=== PATIENT | male | born 1995 | race Caucasian/White ===

== ENCOUNTER 2018-06-09 14:56 | Emergency (ER) | payer OTHER ==
[~2018-06-09] VITALS: Ht 182.9 cm; Wt 83.9 kg
[2018-06-09 15:15] VITALS: BP 174/86
--- NOTE | 2018-06-09 15:32 | PHYS DOC ---
Past History Past Medical History: No Pertinent History Past Surgical History: Other Alcohol Use: Rarely Drug Use: None Adult General Chief Complaint Chief Complaint: KNEE INJURY HPI HPI 22-year-old male presents with left knee pain. The patient stepped off of a curb 2 days ago and had his knee give out. He was unable to weight on it for a couple hours but has been able to bear weight since that time. Knee is still very swollen. Patient is worried because he had ACL repair in August of this year. He is concerned he has reinjured the knee. He denies fever or chills. He has no other injuries. Review of Systems Review of Systems Constitutional: Denies fever or chills [] Eyes: Denies change in visual acuity, redness, or eye pain [] HENT: Denies nasal congestion or sore throat [] Respiratory: Denies cough or shortness of breath [] Cardiovascular: No additional information not addressed in HPI [] GI: Denies abdominal pain, nausea, vomiting, bloody stools or diarrhea [] : Denies dysuria or hematuria [] Musculoskeletal: Left knee pain[] Integument: Denies rash or skin lesions [] Neurologic: Denies headache, focal weakness or sensory changes [] Endocrine: Denies polyuria or polydipsia [] All other systems were reviewed and found to be within normal limits, except as documented in this note. Allergies Allergies Allergies Coded Allergies Type Severity Reaction Last Updated Verified No Known Drug Allergies 06/09/18 No Physical Exam Physical Exam Constitutional: Well developed, well nourished, no acute distress, non-toxic appearance. [] HENT: Normocephalic, atraumatic, bilateral external ears normal, oropharynx moist, no oral exudates, nose normal. [] Eyes: PERRLA, EOMI, conjunctiva normal, no discharge. [] Neck: Normal range of motion, no tenderness, supple, no stridor. [] Cardiovascular:Heart rate regular rhythm, no murmur [] Lungs & Thorax: Bilateral breath sounds clear to auscultation [] Abdomen: Bowel sounds normal, soft, no tenderness, no masses, no pulsatile masses. [] Skin: Warm, dry, no erythema, no rash. [] Back: No tenderness, no CVA tenderness. [] Extremities: Left knee with medial pain with valgus and varus stress. ACL more lax than the right, but there is good end feel. Suprapatellar swelling.[] Neurologic: Alert and oriented X 3, normal motor function, normal sensory function, no focal deficits noted. [] Psychologic: Affect normal, judgement normal, mood normal. [] Current Patient Data Vital Signs Vital Signs Date Time Temp Pulse Resp B/P (MAP) Pulse Ox O2 Delivery O2 Flow Rate FiO2 06/09/18 15:15 76 16 96 Room Air EKG EKG [] Radiology/Procedures Radiology/Procedures [] Impressions: EXAM: AP, oblique, tangential patellar and lateral views of the left knee DATE: 06/09/2018 3:40 PM INDICATION: PAIN IN LEFT KNEE. FALL TODAY. PRIOR SURGERY TO KNEE YEARS AGO COMPARISON: No Prior FINDINGS: Changes of ACL reconstruction are seen with patellar bone tendon bone allograft. Moderate left knee joint effusion. No evidence of acute fracture or dislocation. Neutral patellar tracking. IMPRESSION: 1. No evidence of acute fracture or dislocation. 2. Moderate left knee joint effusion Electronically signed by: Shekhar Duarte MD (06/09/2018 3:55 PM) [id number] DICTATED AND SIGNED BY: SHEKHAR DUARTE MD DATE: 06/09/18 1555 CC: LUCERO CHAVEZ DO; PCP,ALESSANDRA Course & Med Decision Making Course & Med Decision Making Pertinent Labs and Imaging studies reviewed. (See chart for details) The patient's x-rays negative for fracture. He does have moderate effusion. I recommended compression, ice, elevation, ibuprofen. I will discharge him with a short course of [place] 5/325. []I reviewed the chem was prescription drug database and he has not had any narcotics as since his reported time of his postsurgical recovery in September of this year. Dragon Disclaimer Dragon Disclaimer This electronic medical record was generated, in whole or in part, using a voice recognition dictation system. Departure Departure: Referrals: PCPALESSANDRA (PCP) LUCERO CHAVEZ DO Jun 09, 2018 15:32
--- NOTE | 2018-06-09 15:59 | RAD ---
EXAM: AP, oblique, tangential patellar and lateral views of the left knee DATE: 06/09/2018 3:40 PM INDICATION: PAIN IN LEFT KNEE. FALL TODAY. PRIOR SURGERY TO KNEE YEARS AGO COMPARISON: No Prior FINDINGS: Changes of ACL reconstruction are seen with patellar bone tendon bone allograft. Moderate left knee joint effusion. No evidence of acute fracture or dislocation. Neutral patellar tracking. IMPRESSION: 1. No evidence of acute fracture or dislocation. 2. Moderate left knee joint effusion Electronically signed by: Shekhar Duarte MD (06/09/2018 3:55 PM) [id number]
[2018-06-09] MEDS ORDERED: HYDR-3165 PO (16:18)
== END 2018-06-09 16:23 | disposition home or self-care (01) ==
LOC: ER 14:56
DX: M25.462 Effusion, left knee (principal); W10.1XXA Fall (on)(from) sidewalk curb, initial encounter; Y93.89 Activity, other specified; Y92.89 Other specified places as the place of occurrence of the external cause; Y99.8 Other external cause status
CPT/HCPCS: 73564; 99283

== ENCOUNTER 2020-11-12 14:09 | Emergency (ER) | payer OTHER ==
[~2020-11-12] VITALS: Ht 182.9 cm; Wt 99.8 kg
[~2020-11-12 14:09] MED LIST: HYDR-3165 PO
[2020-11-12 14:10] VITALS: BP 165/103
[2020-11-12 15:01] LABS: BASO % 1 % (0-3); EOS # 0.2 x10^3/uL (0.0-0.7); EOS % 2 % (0-3); HEMATOCRIT 44.5 % (39.0-53.0); HEMOGLOBIN 15.1 g/dL (13.0-17.5); LYMPH # 2.9 x10^3/uL (1.0-4.8); LYMPH % 37 % (24-48); MEAN CORPUSCULAR HEMOGLOBIN 33 pg (25-35); MEAN CORPUSCULAR HGB CONC 34 g/dL (31-37); MEAN CORPUSCULAR VOLUME 97 fL (79-100); MONO # 0.7 x10^3/uL (0.0-1.1); MONO % 9 % (0-9); NEUT % 51 % (31-73); PLATELET COUNT 159 x10^3/uL (140-400); RED BLOOD COUNT 4.61 x10^6/uL (4.30-5.70); WHITE BLOOD COUNT 7.8 x10^3/uL (4.0-11.0)
[2020-11-12 15:03] LABS: CALCIUM 9.2 mg/dL (8.5-10.1); GFR 90.3; POTASSIUM 3.6 mmol/L (3.5-5.1)
[2020-11-12 15:08] LABS: ALBUMIN 4.2 g/dL (3.4-5.0); ALBUMIN/GLOBULIN RATIO 1.1 (1.0-1.7); TOTAL BILIRUBIN 0.9 mg/dL (0.2-1.0); TOTAL PROTEIN 7.9 g/dL (6.4-8.2)
[2020-11-12 15:09] LABS: BARBITURATES NEG (NEG); BENZODIAZEPINES POS (NEG); CANNABINOIDS POS (NEG); COCAINE NEG (NEG); METHADONE NEG (NEG); OPIATES NEG (NEG); PHENCYCLIDINE NEG (NEG)
[2020-11-12 15:14] LABS: BACTERIA,URINE 0 /HPF (0-FEW); BILIRUBIN,URINE NEG (NEG); CLARITY,URINE CLEAR; COLOR,URINE AMBER; GLUCOSE,URINE NEG (NEG); NITRITE,URINE NEG (NEG); UROBILINOGEN,URINE 0.2 mg/dL (0.2 mg/dL)
[2020-11-12] MEDS ORDERED: DIPH,PERTUSS(ACELL),TET VAC/PF 0.5 ML SYRINGE. VAX IM ONE (15:15)
[2020-11-12] MEDS ORDERED: IOHEXOL 300 MG/ML 75 ML VIAL. IV ONE (15:15)
[2020-11-12 15:17] LABS: AMPHETAMINE/METHAMPHETAMINE NEG (NEG)
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
--- NOTE | 2020-11-12 15:56 | RAD ---
CT ABDOMEN+PELVIS W dated 11/12/2020 3:18 PM Indication:Reason: L3 back pain / Spl. Instructions: / History: Comparison: No comparison is available. Technique: CT images were performed using injection of 75 mL Omnipaque 300. No oral contrast was give n. One or more of the following individualized dose reduction techniques were utilized for this examinat ion: 1. Automated exposure control 2. Adjustment of the mA and/or kV according to patient size 3. Use of iterative reconstruction technique Findings: The lung bases are clear. The liver and spleen are homogeneous in density and normal in configuration . Both kidneys enhance with contrast. No mass or obstruction is seen. The adrenal glands are not enla rged. The pancreas appears normal. No retroperitoneal or mesenteric adenopathy is seen. There is no a pparent abdominal mass or inflammatory process. A normal appendix is seen arising from the cecum. Images through the pelvis show no abnormality of the distal ureters or bladder. No pelvic or inguinal adenopathy is seen. There is no apparent pelvic mass or inflammatory process. Bone windows show some apparent mild compression of L2. IMPRESSION: Mild L2 compression, presumably recent. No other acute findings in the abdomen or pelvis. Electronically signed by: Kan Paz Jr., MD (11/12/2020 3:54 PM) [id number]
[2020-11-12] MEDS ORDERED: HYDROmorphone PF 1 MG/ML DISP.SYRIN IVP ONE (16:15)
[2020-11-12] MEDS ORDERED: HYDR-2155 PO (17:36)
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
== END 2020-11-12 17:50 | disposition home health service (06) ==
LOC: ER 14:09
DX: S32.029A Unspecified fracture of second lumbar vertebra, initial encounter for closed fracture (principal); F41.9 Anxiety disorder, unspecified; Z23 Encounter for immunization; V87.8XXA Person injured in other specified noncollision transport accidents involving motor vehicle (traffic), initial encounter; Y93.89 Activity, other specified; Y92.488 Other paved roadways as the place of occurrence of the external cause; Y99.8 Other external cause status
CPT/HCPCS: 36415; 70450; 71045; 72125; 74177; 80053; 80307; 81001; 83690; 85025; 90471; 90715; 96374; 99285; G0480; J1170; Q9967

== ENCOUNTER 2021-02-10 21:37 | Emergency (ER) | payer BC, OTHER ==
[~2021-02-10] VITALS: Ht 182.9 cm; Wt 95.4 kg
[~2021-02-10 21:37] MED LIST changes: +HYDR-2155 PO
[2021-02-10 21:45] VITALS: BP 146/98
[2021-02-10] MEDS ORDERED: IV NORMAL SALINE 1,000ML 1,000 ML IV ONE (22:30)
--- NOTE | 2021-02-10 22:30 | RAD ---
Exam: Chest one view INDICATION: Shortness of breath TECHNIQUE: Frontal view of the chest Comparisons: 11/12/2020 FINDINGS: The cardiomediastinal silhouette and pulmonary vessels are within normal limits. The lung and pleural spaces are clear. IMPRESSION: No acute cardiopulmonary process. Electronically signed by: Renee Barrett MD (02/10/2021 10:28 PM) ALDA
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
[2021-02-10 22:59] LABS: BASO % 1 % (0-3); EOS # 0.2 x10^3/uL (0.0-0.7); EOS % 2 % (0-3); HEMATOCRIT 43.4 % (39.0-53.0); HEMOGLOBIN 14.9 g/dL (13.0-17.5); LYMPH # 2.7 x10^3/uL (1.0-4.8); LYMPH % 36 % (24-48); MEAN CORPUSCULAR HEMOGLOBIN 32 pg (25-35); MEAN CORPUSCULAR HGB CONC 34 g/dL (31-37); MEAN CORPUSCULAR VOLUME 93 fL (79-100); MONO # 0.7 x10^3/uL (0.0-1.1); MONO % 9 % (0-9); NEUT % 52 % (31-73); PLATELET COUNT 171 x10^3/uL (140-400); RED BLOOD COUNT 4.65 x10^6/uL (4.30-5.70); RED CELL DISTRIBUTION WIDTH 13.5 % (11.5-14.5); WHITE BLOOD COUNT 7.6 x10^3/uL (4.0-11.0)
--- NOTE | 2021-02-10 23:00 | EKG ---
[facility] ED [facility] [place] [id number] Test Date: 2021-02-10 Test Time: 21:46:24 Pat Name: ROSIE SANCHEZ Department: Room: Gender: M [employer]: : 1995 Requested By: LUCERO CHAVEZ Order Number: [id number] Reading MD: Measurements Intervals [place] Rate: 109 P: 34 MA: 144 QRS: 86 QRSD: 94 T: 26 QT: 316 QTc: 427 Interpretive Statements SINUS TACHYCARDIA OTHERWISE NORMAL ECG RI6.02 No previous ECG available for comparison
[2021-02-10 23:06] LABS: CALCIUM 9.5 mg/dL (8.5-10.1); GFR 90.3; POTASSIUM 3.7 mmol/L (3.5-5.1)
[2021-02-10 23:11] LABS: ALBUMIN 4.6 g/dL (3.4-5.0); ALBUMIN/GLOBULIN RATIO 1.2 (1.0-1.7); TOTAL BILIRUBIN 1.1 mg/dL (0.2-1.0); TOTAL PROTEIN 8.5 g/dL (6.4-8.2)
== END 2021-02-11 00:26 | disposition home or self-care (01) ==
LOC: ER 21:37
DX: F41.0 Panic disorder [episodic paroxysmal anxiety] (principal); G89.29 Other chronic pain
CPT/HCPCS: 36415; 71045; 80053; 84484; 85025; 93005; 96361; 96374; 99285; J2060; J7030

== ENCOUNTER 2021-02-22 11:29 | Emergency (ER) | payer BC ==
[~2021-02-22] VITALS: Ht 182.9 cm; Wt 90.0 kg
--- NOTE | 2021-02-22 12:10 | RAD ---
INDICATION: Reason: chest pain / Spl. Instructions: / History: COMPARISON: February 10, 2021 FINDINGS: Single view of chest obtained. No focal airspace consolidation. Cardiomediastinal contour unremarkable. No acute osseous abnormality. IMPRESSION: * No focal airspace consolidation or edema. Electronically signed by: Brian Martines MD (02/22/2021 12:08 PM) [id number]
[2021-02-22 12:24] LABS: BASO % 1 % (0-3); EOS # 0.1 x10^3/uL (0.0-0.7); EOS % 1 % (0-3); HEMATOCRIT 44.6 % (39.0-53.0); HEMOGLOBIN 15.2 g/dL (13.0-17.5); LYMPH # 1.8 x10^3/uL (1.0-4.8); LYMPH % 33 % (24-48); MEAN CORPUSCULAR HEMOGLOBIN 32 pg (25-35); MEAN CORPUSCULAR HGB CONC 34 g/dL (31-37); MEAN CORPUSCULAR VOLUME 94 fL (79-100); MONO # 0.8 x10^3/uL (0.0-1.1); MONO % 14 % (0-9); NEUT # 2.8 x10^3uL (1.8-7.7); NEUT % 51 % (31-73); PLATELET COUNT 185 x10^3/uL (140-400); RED BLOOD COUNT 4.75 x10^6/uL (4.30-5.70); RED CELL DISTRIBUTION WIDTH 13.5 % (11.5-14.5); WHITE BLOOD COUNT 5.5 x10^3/uL (4.0-11.0)
[2021-02-22 12:26] LABS: CALCIUM 9.3 mg/dL (8.5-10.1); GFR 90.3; POTASSIUM 4.1 mmol/L (3.5-5.1)
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
[2021-02-22 13:44] VITALS: BP 138/68
--- NOTE | 2021-02-22 15:25 | EKG ---
[address] [address] Test Date: 2021-02-22 Test Time: 11:32:46 Pat Name: ROSIE SANCHEZ Department: Room: Gender: M [employer]insurance Analyst: LUZ : 1995 Requested By: COREY STODDARD Order Number: [id number] Reading MD: Measurements Intervals [place] Rate: 105 P: 43 LA: 140 QRS: 107 QRSD: 98 T: 28 QT: 308 QTc: 411 Interpretive Statements SINUS TACHYCARDIA RIGHTWARD AXIS OTHERWISE NORMAL ECG RI6.02 No previous ECG available for comparison
== END 2021-02-22 13:44 | disposition home or self-care (01) ==
LOC: ER 11:29
DX: Z71.1 Person with feared health complaint in whom no diagnosis is made (principal); F41.9 Anxiety disorder, unspecified; G89.29 Other chronic pain; R19.7 Diarrhea, unspecified
CPT/HCPCS: 36415; 71045; 80048; 84484; 85025; 93005; 99285